=== PATIENT | female | born 1990 ===

== ENCOUNTER → 2024-03-24 | Outpatient (CLI) | payer OTHER ==
[2024-04-02 10:09] LABS: HPV GENOTYPE 16 BY TMA Not Detected; HPV GENOTYPE 18/45 BY TMA Not Detected; HPV HIGH RISK BY TMA Detected; HPV SOURCE Vaginal; HPVG SOURCE Vaginal
== END ==
LOC: LAB SHORT 14:12 → LAB 14:12
PROVIDERS: Obstetrics & Gynecology
DX: Z01.419 Encounter for gynecological examination (general) (routine) without abnormal findings (principal); Z80.3 Family history of malignant neoplasm of breast
CPT/HCPCS: 36415; 87624; 87625; G0123